=== PATIENT | male | born 1980 | race Caucasian/White ===

== ENCOUNTER 2022-12-08 15:06 | Emergency (ER) | payer SELFPAY ==
[~2022-12-08] VITALS: Ht 185.4 cm; Wt 80.7 kg
--- NOTE | 2022-12-08 15:20 | NUR ---
BIBRA 878 FOR DRUG WITHDRAWAL. PT STATES "I QUIT COLD TURKEY FOR 10 DAYS". PLACED IN BED, AAOX4, BREATHING EVEN AND UNLABORED SATURATING AT 97%RA
--- NOTE | 2022-12-08 15:30 | NUR ---
AT BEDSIDE FOR EVAL
--- NOTE | 2022-12-08 15:55 | NUR ---
Patient discharged to home in stable condition.
[2022-12-08 16:02] VITALS: BP 145/97
== END 2022-12-08 15:55 | disposition home or self-care (01) ==
LOC: ER 15:08
DX: F11.13 Opioid abuse with withdrawal (principal); Z60.2 Problems related to living alone